=== PATIENT | female | born 1975 | race Two or more races ===

== ENCOUNTER 2022-01-12 16:50 | Emergency (ER) | payer MEDICAID, OTHER ==
[~2022-01-12] VITALS: Ht 165.1 cm; Wt 65.8 kg
[2022-01-12] MEDS ORDERED: FAMOTIDINE. 20 MG/2 ML VIAL IV ONE ×2 (17:15→20:09)
[2022-01-12 17:34] LABS: HEMATOCRIT 25.7 % (31.2-41.9); MEAN CORPUSCULAR HEMOGLOBIN 19.4 uug (24.7-32.8); MEAN CORPUSCULAR VOLUME 64.8 fL (75.5-95.3); PLATELET COUNT (AUTO) 236 K/uL (179-408)
[2022-01-12 17:41] LABS: CREATININE 0.8 mg/dL (0.6-1.3); POTASSIUM 3.5 mmol/L (3.5-5.1)
[2022-01-12 17:47] LABS: BILIRUBIN,TOTAL 0.3 mg/dL (0.2-1.0)
[2022-01-12] MEDS ORDERED: SWABABLE VALVE TRANSFER SET EA MC ONE (18:42)
[2022-01-12] MEDS ORDERED: IV NORMAL SALINE 250 ML IV ONE (18:42)
[2022-01-12] MEDS ORDERED: IOHEXOL 300MG/ML 100 ML INFUS..BTL ONE (18:42)
[2022-01-12 19:18] LABS: *URINE HCG, QUAL NEG (NEGATIVE)
[2022-01-12] MEDS ORDERED: SIME125C81 PO (21:27)
--- NOTE | 2022-01-12 21:36 | NUR ---
Patient discharged to home in stable condition. Written and verbal after care instructions given. Patient verbalizes understanding of instructions. Stressed follow up or return to ER for worsening s/s. Patient out of ER with steady gait, no acute signs of distress, VSS, all belongings taken, IV site discontinued, provided with copies of lab and CT results.
[2022-01-12 21:37] VITALS: BP 115/74
== END 2022-01-12 21:37 | disposition home or self-care (01) ==
LOC: ER 16:50
DX: R10.84 Generalized abdominal pain (principal); K44.9 Diaphragmatic hernia without obstruction or gangrene; D50.9 Iron deficiency anemia, unspecified; K31.89 Other diseases of stomach and duodenum; D25.9 Leiomyoma of uterus, unspecified
CPT/HCPCS: 99285; 74177; 96374; 80053; 84703; 83690; 85025; 36415; J3490; Q9967; A4663